=== PATIENT | male | born 1985 | race Caucasian/White ===

== ENCOUNTER 2016-09-12 16:30 | Emergency (ER) | payer OTHER ==
[2016-09-12] MEDS ORDERED: HYDROcod/ACET 5/325 Prepack 6 PO ONE ×2 (17:31→17:35)
[2016-09-12] MEDS ORDERED: AMOXICILLIN 250 MG Prepack 6 PO ONE (17:35)
[2016-09-12] MEDS ORDERED: AMOXICILLIN 250 MG Prepack 6 PO SCH (22:00)
== END 2016-09-12 17:44 | disposition home or self-care (01) ==
DX: K04.7 Periapical abscess without sinus (principal); R03.0 Elevated blood-pressure reading, without diagnosis of hypertension

== ENCOUNTER 2016-11-28 18:59 | Emergency (ER) | payer OTHER ==
[2016-11-28] MEDS ORDERED: predniSONE 20 MG TABLET PO STA (19:44)
[2016-11-28] MEDS ORDERED: predniSONE 20 MG TABLET ONE (19:46)
--- NOTE | 2016-11-28 19:48 | ED Physician Documentation ---
History of Present Illness - Stated complaint Stated Complaint: NECK PX - Chief complaint Chief Complaint: General - History obtained from History obtained from: Patient - History of Present Illness Timing: Other (30-year-old gentleman whose had neck pain in the midline for a month after sleeping on a couch. He thought it was just muscle at first but it' s been going on for a long time now, he saw a chiropractor who made it worse. Today it was even worse and he developed some shooting pain and numbness down the thumb side of his arm on the right.) Review of Systems Constitutional: reports: Reviewed and negative Throat: reports: Reviewed and negative Cardiac: reports: Reviewed and negative Respiratory: reports: Reviewed and negative PD PAST MEDICAL HISTORY - Past Medical History Past Medical History: Yes Cardiovascular: None Respiratory: None Neuro: None Endocrine/Autoimmune: None GI: None : None HEENT: None Psych: None Musculoskeletal: None Derm: None - Past Surgical History Past Surgical History: No - Present Medications Home Medications: Ambulatory Orders Medication Instructions Recorded Confirmed predniSONE [Deltasone] 20 mg PO [id number] #21 tab 11/28/16 - Allergies Allergies/Adverse Reactions: Allergies Allergy/AdvReac Type Severity Reaction Status Date / Time vancomycin Allergy Severe Rash Verified 11/28/16 19:11 - Social History Does the pt smoke?: No Smoking Status: Never smoker Does the pt drink ETOH?: Yes Does the pt have substance abuse?: No - Immunizations Immunizations are current?: Yes - POLST Patient has POLST: No PD ED PE NORMAL - Vitals Vital signs reviewed: Yes - General General: Alert and oriented X 3, No acute distress - Neck Neck: No bony TTP, Other (He has pain especially when looking to the right and resist rotation but not flexion) - Extremities Extremities: Other (He has symmetric sensation and reflexes throughout the upper extremities. Normal personal financial advisor strength, interosseous, thumb extension. I wonder if he might have subtly decreased wrist flexion on the right but it is subtle, wrist extension seems maintained.) - Neuro Neuro: Alert and oriented X 3, Normal speech - Psych Psych: Normal mood, Normal affect Results - Vitals Vitals: Vital Signs - 24 hr 11/28/16 19:12 Temperature 36.5 C Heart Rate 79 Respiratory 16 Rate Blood Pressure 165/108 H O2 Saturation 100 Oxygen O2 Source Room air - Rads (name of study) C spine XR Radiology: EMP read contemporaneously (mild scoliosis, NAD) PD MEDICAL DECISION MAKING - ED course ED course: Presents with ongoing neck pain that could be muscular but seems long-standing for that. And some symptoms that could be referable to a cervical radiculopathy. He declined pain medication per se but wanted to try some steroid after discussion. Departure - Departure Disposition: Home, Self Care Clinical Impression: Cervical radiculopathy Condition: Good Record reviewed to determine appropriate education?: Yes Instructions: ED Cervical Radiculopathy Follow-Up: [facility] [Provider Group] [facility] [Provider Group] [facility] [Provider Group] Prescriptions: predniSONE [Deltasone] 20 mg PO [id number] #21 tab Comments: Your blood pressure was elevated today on check in to the emergency department. This does not mean that you have hypertension, it is a common phenomenon to check into the emergency department and have elevated blood pressure. I recommend that you see your primary care physician within the week to have it rechecked when you're feeling better. Followup with a primary care physician. Call around or use the ones listed on this form. As discussed I suspect you will be referred to physical therapy and if that is unhelpful than potentially an MRI after that.
--- NOTE | 2016-11-28 20:58 | XRAY Preliminary Report ---
Exam: XR Cervical Spine 2 View IMPRESSION: 1. No fracture or dislocation. 2. There is mild right convex scoliosis. [facility] SITE ID: [id number]
--- NOTE | 2016-11-28 21:00 | XRAY Report ---
EXAM: CERVICAL SPINE RADIOGRAPHY EXAM DATE: 11/28/2016 08:11 PM. CLINICAL HISTORY: Neck pain. COMPARISONS: None. TECHNIQUE: 3 views. FINDINGS: Alignment: No evidence of dislocation. There is mild right convex scoliosis. Bones: The cervical vertebral bodies and posterior elements are well visualized from the skull base t hrough C7-T1. No fractures or bone lesions. Disks: Normal. Disk heights are maintained. Facets: No degenerative disease. Soft Tissues: Normal. No prevertebral soft tissue swelling. The visualized lung apices are clear. IMPRESSION: 1. No fracture or dislocation. 2. There is mild right convex scoliosis. [facility] Referring Provider Line: [phone] SITE ID: [id number]
[2016-11-28 21:08] VITALS: BP 142/98
== END 2016-11-28 21:15 | disposition home or self-care (01) ==
LOC: ED 18:59
DX: M54.12 Radiculopathy, cervical region (principal); R03.0 Elevated blood-pressure reading, without diagnosis of hypertension
CPT/HCPCS: 72040; 99283; J7512

== ENCOUNTER 2018-02-16 08:28 | Observation (INO) | payer OTHER ==
[2018-02-16] MEDS ORDERED: ELECTROLYTE-A SOLUTION 1,000 ML IV STA (09:01)
[2018-02-16] MEDS ORDERED: cefTRIAXone 1 GM in SODIUM CHLORIDE 0.9% MINIBAG 100 ML IV STA (09:05)
--- NOTE | 2018-02-16 09:08 | ED Physician Documentation ---
PD HPI HEENT - Stated complaint Stated Complaint: MOUTH PAIN - Chief complaint Chief Complaint: Abd Pain - History obtained from History obtained from: Patient, Family - History of Present Illness Timing - onset: Enter time (1130), Yesterday Timing - duration: Days (1) Timing - details: Gradual onset, Still present Location: Tooth Improves: Medication Associated symptoms: Headache, Other (chills) Similar symptoms before: Diagnosis (bad tooth) Recently seen: Not recently seen - Additional information Additional information: 32-year-old male with a history of poor dentition and prior dental abscess broke off a part of his tooth yesterday and stabbed it into the gums on the right side. He had bit of bleeding associated with this. At about 4:30 in the morning he got up and took some amoxicillin with pain he was having in his mouth. He went back to bed and at approximately 8:00 in the morning he awoke to shaking chills and felt horrible. He is come in now with nausea vomiting and peripheral cyanosis. Review of Systems Constitutional: reports: Fever, Chills, Fatigue, Sweats Eyes: denies: Decreased vision Ears: denies: Ear pain Nose: reports: Congestion Throat: reports: Dental pain / toothache, Oral lesions / sores Cardiac: denies: Chest pain / pressure, Palpitations Respiratory: reports: Dyspnea GI: reports: Nausea, Vomiting. denies: Abdominal Pain : denies: Dysuria, Frequency Skin: denies: Rash Musculoskeletal: denies: Neck pain, Back pain, Extremity pain Neurologic: reports: Generalized weakness. denies: Focal weakness, Numbness PD PAST MEDICAL HISTORY - Past Medical History Cardiovascular: None Respiratory: None Endocrine/Autoimmune: None GI: None : None HEENT: None Psych: None Musculoskeletal: None Derm: None - Past Surgical History Past Surgical History: No - Present Medications Home Medications: Ambulatory Orders Medication Instructions Recorded Confirmed Amoxicillin 500 mg PO 02/16/18 - Allergies Allergies/Adverse Reactions: Allergies Allergy/AdvReac Type Severity Reaction Status Date / Time vancomycin Allergy Severe Rash Verified 02/16/18 08:37 - Social History Does the pt smoke?: No Smoking Status: Never smoker Does the pt drink ETOH?: Yes Does the pt have substance abuse?: No - Immunizations Immunizations are current?: Yes - POLST Patient has POLST: No PD ED PE NORMAL - Vitals Vital signs reviewed: Yes (tachy and hypertensive ) - General General: Alert and oriented X 3, Well developed/nourished, Other (The patient has acrocyanosis around the lips and there is a slight delay in execution of motor commands. ) - HEENT HEENT: Atraumatic, PERRL, EOMI, Ears normal, Other (There are 2 teeth broken off at the base on the right lower jaw. There is inflamation to the gingival mucosa. ) - Neck Neck: Supple, no meningeal sign, No bony TTP - Cardiac Cardiac: No murmur, Other (tachy ) - Respiratory Respiratory: No respiratory distress - Abdomen Abdomen: Soft, Non tender - Back Back: No CVA TTP, No spinal TTP - Derm Derm: Warm and dry, Other (pale ) - Extremities Extremities: No deformity, No edema - Neuro Neuro: Alert and oriented X 3, technical support specialist 2-12 intact, No motor deficit, No sensory deficit, Normal speech Eye Opening: Spontaneous Motor: Obeys Commands Verbal: Oriented GCS Score: 15 - Psych Psych: Normal mood, Normal affect Results - Vitals Vitals: Vital Signs - 24 hr 02/16/18 02/16/18 02/16/18 08:33 09:25 09:31 Temperature 36.9 C 38.0 C H Heart Rate 121 H 106 H 97 Respiratory 16 16 16 Rate Blood Pressure 144/85 H 133/73 H 136/86 H O2 Saturation 99 94 96 02/16/18 02/16/18 02/16/18 10:01 10:30 11:00 Temperature 37.8 C H Heart Rate 90 90 94 Respiratory 16 16 Rate Blood Pressure 135/87 H 121/81 H 121/81 H O2 Saturation 97 97 97 02/16/18 02/16/18 02/16/18 11:29 12:00 12:30 Temperature 37.3 C 37.0 C 37.6 C H Heart Rate 88 87 83 Respiratory 16 16 16 Rate Blood Pressure 108/77 120/84 H 102/63 O2 Saturation 97 97 97 Oxygen O2 Source Room air - Labs Labs: Laboratory Tests 02/16/18 02/16/18 02/16/18 09:15 09:15 09:15 WBC 2.6 L RBC 4.69 L Hgb 16.0 Hct 45.5 MCV 97.0 H MCH 34.1 H MCHC 35.2 RDW 12.8 Plt Count 143 MPV 8.7 Neut # (Auto) 2.1 Lymph # (Auto) 0.4 L [place] # (Auto) 0.0 Eos # (Auto) 0.0 Baso # (Auto) 0.0 Absolute Nucleated RBC 0.00 Nucleated RBC % 0.2 Manual Slide Review Indicated WBC Morphology NORMAL APPEARANCE Platelet Estimate NORMAL (130-450,000) Platelet Morphology NORMAL APPEARANCE RBC Morph Micro Appear NORMAL APPEARANCE Sodium 140 Potassium 3.3 L Chloride 108 Carbon Dioxide 20 L Anion Gap 12.0 BUN 12 Creatinine 0.9 Estimated GFR (MDRD) 99 Glucose 116 H Lactic Acid 2.4 H Calcium 8.7 Total Bilirubin 1.8 H AST 77 H ALT 79 H Alkaline Phosphatase 57 Total Protein 7.1 Albumin 4.2 Globulin 2.9 Albumin/Globulin Ratio 1.4 02/16/18 12:37 WBC RBC Hgb Hct MCV MCH MCHC RDW Plt Count MPV Neut # (Auto) Lymph # (Auto) [place] # (Auto) Eos # (Auto) Baso # (Auto) Absolute Nucleated RBC Nucleated RBC % Manual Slide Review WBC Morphology Platelet Estimate Platelet Morphology RBC Morph Micro Appear Sodium Potassium Chloride Carbon Dioxide Anion Gap BUN Creatinine Estimated GFR (MDRD) Glucose Lactic Acid 2.4 H Calcium Total Bilirubin AST ALT Alkaline Phosphatase Total Protein Albumin Globulin Albumin/Globulin Ratio PD MEDICAL DECISION MAKING - ED course Complexity details: reviewed old records, reviewed results, re-evaluated patient , considered differential, d/w patient, d/w family ED course: 32-year-old male with a history of bad teeth has developed another dental abscess and today he has spiked a fever and appears septic on arrival to the emergency department. He arrives with acrocyanosis tachycardia fever and a depressed white blood cell count. His lactate is 2.4. He is administered intravenous saline and Rocephin. I suspect the patient was bacteremic from the dental infection and will likely have positive blood cultures. He did take a single dose of amoxicillin at 4:00 in the morning. The patient's case is discussed with the hospitalist Dr. Kim and we will repeat his lactate if this is normal we will consider allowing the patient to go home with normal vital signs. Lactate is still elevated and he is admitted for sepsis. - Sepsis Event Vital Signs: Vital Signs - 24 hr 02/16/18 02/16/18 02/16/18 08:33 09:25 09:31 Temperature 36.9 C 38.0 C H Heart Rate 121 H 106 H 97 Respiratory 16 16 16 Rate Blood Pressure 144/85 H 133/73 H 136/86 H O2 Saturation 99 94 96 02/16/18 02/16/18 02/16/18 10:01 10:30 11:00 Temperature 37.8 C H Heart Rate 90 90 94 Respiratory 16 16 Rate Blood Pressure 135/87 H 121/81 H 121/81 H O2 Saturation 97 97 97 02/16/18 02/16/18 02/16/18 11:29 12:00 12:30 Temperature 37.3 C 37.0 C 37.6 C H Heart Rate 88 87 83 Respiratory 16 16 16 Rate Blood Pressure 108/77 120/84 H 102/63 O2 Saturation 97 97 97 Oxygen O2 Source Room air Departure - Departure Disposition: ED Place in Observation Clinical Impression: Dental abscess Sepsis Qualifiers: Sepsis type: sepsis due to unspecified organism Qualified Code(s): A41.9 - Sepsis, unspecified organism
[2018-02-16] MEDS ORDERED: ACETAMINOPHEN 500 MG TABLET PO STA (09:26)
[2018-02-16 09:34] LABS: BASOPHILS % (AUTO) 0.1 %; EOSINOPHILS % (AUTO) 0.8 %; LYMPHOCYTES # (AUTO) 0.4 10^3/uL (1.5-3.5); LYMPHOCYTES % (AUTO) 16.3 %; MEAN CORPUSCULAR HEMOGLOBIN 34.1 pg (27.0-31.0); MEAN CORPUSCULAR HGB CONC 35.2 g/dL (32.0-36.0); MEAN PLATELET VOLUME 8.7 fL (7.4-11.4); NEUTROPHILS # (AUTO) 2.1 10^3/uL (1.5-6.6); NEUTROPHILS % (AUTO) 81.8 %; PLT - PLATELET COUNT 143 10^3/uL (130-450); RED BLOOD COUNT 4.69 10^6/uL (4.70-6.10); RED CELL DISTRIBUTION WIDTH 12.8 % (12.0-15.0); WHITE BLOOD COUNT 2.6 x10^3/uL (4.8-10.8)
[2018-02-16 09:44] LABS: ALBUMIN 4.2 g/dL (3.2-5.5); ALBUMIN/GLOBULIN RATIO 1.4 (1.0-2.2); BILIRUBIN,TOTAL 1.8 mg/dL (0.2-1.0); CALCIUM 8.7 mg/dL (8.5-10.3); CREATININE 0.9 mg/dL (0.6-1.2); TOTAL PROTEIN 7.1 g/dL (6.7-8.2)
[2018-02-16 10:05] LABS: PLATELET ESTIMATE, MANUAL NORMAL (130-450,000) (NORMAL); PLATELET MORPHOLOGY NORMAL APPEARANCE (NORMAL); RBC MORPHOLOGY (MULTIPLE) NORMAL APPEARANCE (NORMAL)
[2018-02-16] MEDS ORDERED: SODIUM CHLORIDE 0.9% 1,000 ML IV ONE (13:28)
[2018-02-16] MEDS ORDERED: oxyCODONE 5 MG TABLET PO PRN (13:41)
[2018-02-16] MEDS ORDERED: ZOLPIDEM 5 MG TABLET PO PRN (13:41)
[2018-02-16] MEDS ORDERED: PROMETHAZINE 25 MG/1 ML VIAL IM PRN (13:41)
[2018-02-16] MEDS ORDERED: PROCHLORPERAZINE 10 MG/2 ML VIAL IVP PRN (13:41)
[2018-02-16] MEDS ORDERED: ONDANSETRON 4 MG/2 ML VIAL IVP PRN (13:41)
[2018-02-16] MEDS ORDERED: SODIUM CHLORIDE 0.9% 3,000 ML IV STA (13:41)
[2018-02-16] MEDS ORDERED: SODIUM CHLORIDE FLUSH 0.9% 10 ML SYRINGE IVP PRN (13:41)
--- NOTE | 2018-02-16 13:53 | HISTORY & PHYSICAL EXAMINATION ---
Chief Complaint - Chief Complaint Chief Complaint: Chills, shakes and vomiting History of Present Illness - Admitted From Admitted From:: Emergency Department - History Obtained From Records Reviewed: Yes History obtained from: Patient Exam Limitations: None - History of Present Illness HPI Comment/Other: Patient is a 32-year-old gentleman with a past medical history significant for history of tooth abscess and gluteal abscess who presented to the emergency department with a chief complaint of chills, shakes and vomiting. The patient states that he previously had a dental abscess for which he took antibiotics. He states that he was supposed to see a dentist to have further treatment but failed to go to the dentist. He states that since then his tooth has fallen out and he has not had any major issues with that tooth. He states that last night he was eating chips when 1 of the chips edges went into his gum where the patient's tooth once laid. He states that he had some bleeding from that gum. He states that there was pain but he went to sleep later in the night. He states that he woke up around 430 with excruciating pain in his mouth around the area where he had the previous bleeding. He states that he noticed that his gum had swollen. He states that he tried to go back to sleep but then began having chills. He states he was shaking uncontrollably. He did not take his temperature at the time. He states that he then became nauseated and had several episodes of emesis. He states that this went on for a few hours and then his told him he needed to go to the emergency department as she noted his lips were turning purple. The patient denies any headache, blurred vision, runny nose, sore throat, nasal congestion, difficulty swallowing, chest pain, cough, shortness of air, orthopnea, PND, increased lower extremity swelling, abdominal pain, diarrhea, constipation, increased urinary urgency, urinary frequency, dysuria, joint pain , joint swelling, muscle aches, back pain, neck stiffness, recent unintentional weight loss, skin rash, hair loss or any focal neurologic deficits. On presentation to the emergency department the patient was febrile with a temperature of 38.0, tachycardic with a heart rate of 121, normotensive and not in any respiratory distress. The patient did look ill-appearing on presentation. Patient's lab work revealed a leukopenia with a white blood cell count of 2.6. The patient had an elevated lactic acid of 2.4 and a hypokalemia with potassium of 3.3. The patient was found to have an infection of his right bottom second premolar. Patient was given 2 L of IV fluid and IV ceftriaxone in the emergency department. The patient initially seemed to have some improvement. However he again spiked a low-grade fever of 37.6 and his blood pressure dropped to 102/63. The patient had a repeat lactic acid which continued to be elevated at 2.4. At this point the patient was considered to be septic and was placed in observation overnight for continued IV antibiotics and IV fluids. The patient did have blood cultures drawn in the emergency department prior to getting antibiotics. History - Past Medical History Cardiovascular: reports: None Respiratory: reports: None Endocrine/Autoimmune: reports: None GI: reports: None : reports: None HEENT: reports: None Psych: reports: None Musculoskeletal: reports: None Derm: reports: None MRSA Hx?: No Other Past Medical History: History of dental abscess - Family & Social History Family History: Mother: Alive and Well (Grandparents also alive and healthy), Father: Alive and Well, Sister: Alive and Well, Brother: Alive and Well Living arrangement: At home Living Situation: With family Social History Notes: Patient lives in [place] with his fiance and 3-year- old child. He is originally from [place] but moved up here as his cousin owns a restaurant in [place]. 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 He does not smoke cigarettes but does use chewing tobacco. He does drink occasionally and denies any illicit drug use. - POLST Patient has POLST: No POLST Status: Full Code Meds/Allgy - Home Medications Home Medications: Ambulatory Orders Medication Instructions Recorded Confirmed No Known Home Medications [No 02/16/18 02/16/18 Known Home Medications] - Allergies Allergies/Adverse Reactions: Allergies Allergy/AdvReac Type Severity Reaction Status Date / Time vancomycin Allergy Severe Rash Verified 02/16/18 08:37 Review of Systems - Other Findings Other Findings: A comprehensive review of systems was performed the pertinent positives and negatives are stated above in the HPI and the remainder of the review of systems is negative. Exam - Vital Signs Reviewed Vital Signs: Yes Vital Signs: Vital Signs x48h Temp Pulse Resp BP Pulse Ox 02/16/18 13:30 37.1 C 82 16 131/89 H 97 02/16/18 12:30 37.6 C H 83 16 102/63 97 02/16/18 12:00 37.0 C 87 16 120/84 H 97 02/16/18 11:29 37.3 C 88 16 108/77 97 02/16/18 11:00 94 121/81 H 97 02/16/18 10:30 37.8 C H 90 16 121/81 H 97 02/16/18 10:01 90 16 135/87 H 97 02/16/18 09:31 97 16 136/86 H 96 02/16/18 09:25 38.0 C H 106 H 16 133/73 H 94 02/16/18 08:33 36.9 C 121 H 16 144/85 H 99 - Physical Exam General Appearance: positive: No acute distress, Alert Eyes Bilateral: positive: Normal inspection, PERRL, EOMI, No lid inflammation, Conjunctivae nml, No scleral icterus ENT: positive: Pharynx nml, Dry mucous membranes, Other (Right bottom 2nd pre molar is tender to touch and slightly swollen without any drainage. There is remains of took on top of his gum but tooth has come out. No bleeding.) Neck: positive: Nml inspection, Thyroid nml, No JVD, Trachea midline Respiratory: positive: Chest non-tender, No respiratory distress, Breath sounds nml Cardiovascular: positive: Regular rate & rhythm, No murmur, No gallop Peripheral Pulses: positive: 2+ Abdomen: positive: Non-tender, No organomegaly, Nml bowel sounds, No distention. negative: Guarding, Rebound, Hepatomegaly Back: positive: Nml inspection. negative: CVA tenderness (R), CVA tenderness (L ) Skin: positive: Color nml, No rash, Warm, Dry. negative: Cyanosis, Diaphoresis , Pallor, Skin rash Extremities: positive: Non-tender, Full ROM, Nml appearance, No pedal edema Neurologic/Psychiatric: positive: Oriented x3, CN's nml (2-12), Motor nml, Sensation nml, Mood/affect nml Conclusion/Plan - Problem List (1) Severe sepsis Conclusion/Plan: Patient presented with fever of 38.0, heart rate 121, leukopenia with WBC of 2.6 , elevated lactic acid of 2.4 and source of infection being dental infection. The patient's blood pressure did drop to the low 100s but was maintained with IV fluid. The patient meets criteria for severe sepsis. After fluid resuscitation patient's lactic acid remained 2.4. The patient was given IV ceftriaxone in the emergency department along with IV fluids. Although the patient is otherwise young and healthy given that he only had a mild response to treatment he was placed in observation overnight for continued IV antibiotics and IV fluids. Plan: IV Unasyn IV fluid IV antiemetics Repeat lactic acid every 6 hours Follow-up blood cultures (2) Dental infection Conclusion/Plan: Patient presented with severe sepsis secondary to a dental infection. Patient appears to have infection of his bottom right second premolar. The patient does have tenderness and erythema as well as swelling of the area. He does not appear to have an abscess at this time. There is no drainage from the tooth. The patient has had an abscess of that tooth in the past. The tooth has fallen out but there are still remains on the gums. Plan: IV Unasyn Pain control IV antiemetics IV fluids Patient needs follow-up with dentist once discharged (3) Hypokalemia Conclusion/Plan: The patient has hypokalemia on presentation with a potassium of 3.3. The patient was vomiting prior to presentation and continues to be nauseated. Likely patient's hypokalemia is secondary to vomiting. Patient will be given IV antiemetics and potassium replacement we will continue to monitor his potassium. (4) Elevated LFTs Conclusion/Plan: The patient has mildly elevated LFTs with a bilirubin of 1.8, AST of 77 and ALT of 79. This may be secondary to his ongoing severe sepsis. It is possible this could be a chronic finding for the patient as we do not have any previous LFTs in the system. Patient could have left fatty liver disease or alcoholic liver disease. For now we will continue to monitor his LFTs if they continue to go up we will consider an ultrasound of his liver and further workup. - Lab Results Lab results reviewed: Yes Fish Bones: 02/16/18 09:15 02/16/18 09:15 Other Lab Results: Laboratory Results WBC 2.6 x10^3/uL (4.8-10.8) L 02/16/18 09:15 RBC 4.69 10^6/uL (4.70-6.10) L 02/16/18 09:15 Hgb 16.0 g/dL (14.0-18.0) 02/16/18 09:15 Hct 45.5 % (42.0-52.0) 02/16/18 09:15 MCV 97.0 fL (80.0-94.0) H 02/16/18 09:15 MCH 34.1 pg (27.0-31.0) H 02/16/18 09:15 MCHC 35.2 g/dL (32.0-36.0) 02/16/18 09:15 RDW 12.8 % (12.0-15.0) 02/16/18 09:15 Plt Count 143 10^3/uL (130-450) 02/16/18 09:15 MPV 8.7 fL (7.4-11.4) 02/16/18 09:15 Neut # (Auto) 2.1 10^3/uL (1.5-6.6) 02/16/18 09:15 Lymph # (Auto) 0.4 10^3/uL (1.5-3.5) L 02/16/18 09:15 [place] # (Auto) 0.0 10^3/uL (0.0-1.0) 02/16/18 09:15 Eos # (Auto) 0.0 10^3/uL (0.0-0.7) 02/16/18 09:15 Baso # (Auto) 0.0 10^3/uL (0.0-0.1) 02/16/18 09:15 Absolute Nucleated RBC 0.00 x10^3/uL 02/16/18 09:15 Nucleated RBC % 0.2 /100WBC 02/16/18 09:15 Manual Slide Review Indicated 02/16/18 09:15 WBC Morphology NORMAL APPEARANCE (NORMAL) 02/16/18 09:15 Platelet Estimate NORMAL (130-450,000) (NORMAL) 02/16/18 09:15 Platelet Morphology NORMAL APPEARANCE (NORMAL) 02/16/18 09:15 RBC Morph Micro Appear NORMAL APPEARANCE (NORMAL) 02/16/18 09:15 Sodium 140 mmol/L (135-145) 02/16/18 09:15 Potassium 3.3 mmol/L (3.5-5.0) L 02/16/18 09:15 Chloride 108 mmol/L (101-111) 02/16/18 09:15 Carbon Dioxide 20 mmol/L (21-32) L 02/16/18 09:15 Anion Gap 12.0 (6-13) 02/16/18 09:15 BUN 12 mg/dL (6-20) 02/16/18 09:15 Creatinine 0.9 mg/dL (0.6-1.2) 02/16/18 09:15 Estimated GFR (MDRD) 99 (>89) 02/16/18 09:15 Glucose 116 mg/dL (70-100) H 02/16/18 09:15 Lactic Acid 2.4 mmol/L (0.5-2.2) H 02/16/18 12:37 Calcium 8.7 mg/dL (8.5-10.3) 02/16/18 09:15 Total Bilirubin 1.8 mg/dL (0.2-1.0) H 02/16/18 09:15 AST 77 IU/L (10-42) H 02/16/18 09:15 ALT 79 IU/L (10-60) H 02/16/18 09:15 Alkaline Phosphatase 57 IU/L (42-121) 02/16/18 09:15 Total Protein 7.1 g/dL (6.7-8.2) 02/16/18 09:15 Albumin 4.2 g/dL (3.2-5.5) 02/16/18 09:15 Globulin 2.9 g/dL (2.1-4.2) 02/16/18 09:15 Albumin/Globulin Ratio 1.4 (1.0-2.2) 02/16/18 09:15 - Diagnostic Imaging Results Diagnostic Imaging Results: positive: Final report reviewed Diagnostic Imaging Results Comments: Chest x-ray Impression Normal 2 view chest radiography. Core Measures - Anticipated LOS I expect patient to be DC'd or transferred within 96 hours.: Yes - DVT/VTE - Prophylaxis VTE/DVT Device ordered at admit?: Yes
--- NOTE | 2018-02-16 14:30 | XRAY Report ---
Reason: fever, chills, sepsis Procedure Date: 02/16/2018 Accession Number: [id number] / [id number] Procedure: XR - Chest 2 View X-Ray CPT Code: 06220 FULL RESULT: EXAM: CHEST RADIOGRAPHY EXAM DATE: 02/16/2018 01:55 PM. CLINICAL HISTORY: Fever, chills, sepsis COMPARISON: None. TECHNIQUE: 2 views. FINDINGS: Lungs/Pleura: No focal opacities evident. No pleural effusion. No pneumothorax. Normal volumes. Mediastinum: Heart and mediastinal contours are unremarkable. Other: Negative bony structures IMPRESSION: Normal 2-view chest radiography. [facility]
[2018-02-16] MEDS: AMPICILLIN/SULBACTAM 1.5 GM in SODIUM CHLORIDE 0.9% MINIBAG 100 ML IV SCH ×2 (14:36→17:44)
[2018-02-16] MEDS: NS W/20 MEQ KCL 1,000 ML IV SCH (14:37)
[2018-02-16 16:02] LABS: BILIRUBIN,URINE NEGATIVE (NEGATIVE); CLARITY,URINE CLEAR (CLEAR); GLUCOSE, URINE (UA) NEGATIVE (NEGATIVE); KETONES,URINE (UA) NEGATIVE (NEGATIVE); LEUKOCYTE ESTERASE, URINE NEGATIVE (NEGATIVE); NITRITE,URINE NEGATIVE (NEGATIVE); OCCULT BLOOD,URINE NEGATIVE (NEGATIVE); PH,URINE 6.5 PH (5.0-7.5); PROTEIN,URINE NEGATIVE (NEGATIVE); UROBILINOGEN,URINE 0.2 (NORMAL) E.U./dL (NORMAL)
[2018-02-16] MEDS: SODIUM CHLORIDE FLUSH 0.9% 10 ML SYRINGE IVP SCH (16:51)
[2018-02-16] MEDS: ACETAMINOPHEN 325 MG TABLET PO PRN ×2 (16:51→21:46)
[2018-02-17] MEDS: AMPICILLIN/SULBACTAM 1.5 GM in SODIUM CHLORIDE 0.9% MINIBAG 100 ML IV SCH ×3 (00:19→12:07)
[2018-02-17] MEDS: SODIUM CHLORIDE FLUSH 0.9% 10 ML SYRINGE IVP SCH ×3 (00:39→15:55)
[2018-02-17] MEDS: ACETAMINOPHEN 325 MG TABLET PO PRN ×3 (01:56→15:54)
[2018-02-17] MEDS: NS W/20 MEQ KCL 1,000 ML IV SCH (01:58)
[2018-02-17] MEDS ORDERED: KETOROLAC 15 MG/ML VIAL IVP PRN (02:41)
[2018-02-17] MEDS ORDERED: LINEZOLID 600 MG/300 ML 600 MG/300 ML BAG IV SCH ×2 (03:00→15:00)
[2018-02-17 03:54] LABS: MUDS CUTOFF CONCENTRATIONS CUTOFF CONC BELOW:
[2018-02-17 04:26] LABS: AMPHETAMINE SCREEN,URINE NEGATIVE (NEGATIVE); BENZODIAZEPINES SCREEN, URINE NEGATIVE (NEGATIVE); COCAINE SCREEN URINE NEGATIVE (NEGATIVE); METHADONE SCREEN, URINE NEGATIVE (NEGATIVE); METHAMPHETAMINES SCREEN, URINE NEGATIVE (NEGATIVE); OPIATE SCREEN, URINE NEGATIVE (NEGATIVE); OXYCODONE SCREEN, URINE NEGATIVE (NEGATIVE); PROPOXYPHENE SCREEN, URINE NEGATIVE (NEGATIVE); TRICYCLIC ANTIDEPRESSANT,URINE NEGATIVE (NEGATIVE)
[2018-02-17 06:20] LABS: BASOPHILS % (AUTO) 0.2 %; HGB - HEMOGLOBIN 15.5 g/dL (14.0-18.0); LYMPHOCYTES # (AUTO) 0.4 10^3/uL (1.5-3.5); LYMPHOCYTES % (AUTO) 4.4 %; MEAN CORPUSCULAR HEMOGLOBIN 34.9 pg (27.0-31.0); MEAN CORPUSCULAR HGB CONC 35.8 g/dL (32.0-36.0); MEAN CORPUSCULAR VOLUME 97.7 fL (80.0-94.0); MEAN PLATELET VOLUME 9.1 fL (7.4-11.4); MONOCYTES # (AUTO) 0.4 10^3/uL (0.0-1.0); MONOCYTES % (AUTO) 4.4 %; NEUTROPHILS # (AUTO) 9.3 10^3/uL (1.5-6.6); PLT - PLATELET COUNT 113 10^3/uL (130-450); RED BLOOD COUNT 4.44 10^6/uL (4.70-6.10); RED CELL DISTRIBUTION WIDTH 12.9 % (12.0-15.0); WHITE BLOOD COUNT 10.2 x10^3/uL (4.8-10.8)
[2018-02-17] MEDS ORDERED: POLYETHYLENE GLYCOL 3350 17 GM PACKET PO SCH (09:00)
[2018-02-17] MEDS ORDERED: FAMOTIDINE 20 MG TABLET PO SCH (09:00)
--- NOTE | 2018-02-17 10:06 | Discharge Plan ---
Discharge Plan Disposition: 01 Home, Self Care Condition: Fair Prescriptions: Clindamycin HCl [Clindamycin 150MG CAP] 150 mg PO QID #84 capsule Diet: Soft Activity Restrictions: Activity as Tolerated Shower Restrictions: No Driving Restrictions: No Instruction Topics: Clindamycin capsules, Dental Abscess, MRSA Infec Additional Instructions or Follow Up instructions: You have a dental infection and are being discharged home with oral antibiotics for 7 days. You will take clindamycin four times a day. Please follow up with a dentist as soon as possible. No Smoking: If you smoke, Please STOP! Call for help.
--- NOTE | 2018-02-17 10:20 | DISCHARGE SUMMARY ---
Discharge Summary Admit Date: 02/16/18 Discharge Date: 02/17/18 Discharging Provider: Rodney Kim MD Primary Care Provider: None Code Status: Attempt Resuscitation Condition at Discharge: Fair Discharge Disposition: 01 Home, Self Care - DIAGNOSES Admission Diagnoses: 1. Severe sepsis 2. Dental infection 3. Hypokalemia 4. Elevated LFTs Discharge Diagnoses with Status of Each Condition: 1. Severe sepsis: Resolved 2. Dental infection: Improving 3. Hypokalemia: Resolved 4. Elevated LFTs: Stable - HPI History of Present Illness: Patient is a 32-year-old gentleman with a past medical history significant for history of tooth abscess and gluteal abscess who presented to the emergency department with a chief complaint of chills, shakes and vomiting. The patient states that he previously had a dental abscess for which he took antibiotics. He states that he was supposed to see a dentist to have further treatment but failed to go to the dentist. He states that since then his tooth has fallen out and he has not had any major issues with that tooth. He states that last night he was eating chips when 1 of the chips edges went into his gum where the patient's tooth once laid. He states that he had some bleeding from that gum. He states that there was pain but he went to sleep later in the night. He states that he woke up around 430 with excruciating pain in his mouth around the area where he had the previous bleeding. He states that he noticed that his gum had swollen. He states that he tried to go back to sleep but then began having chills. He states he was shaking uncontrollably. He did not take his temperature at the time. He states that he then became nauseated and had several episodes of emesis. He states that this went on for a few hours and then his told him he needed to go to the emergency department as she noted his lips were turning purple. The patient denies any headache, blurred vision, runny nose, sore throat, nasal congestion, difficulty swallowing, chest pain, cough, shortness of air, orthopnea, PND, increased lower extremity swelling, abdominal pain, diarrhea, constipation, increased urinary urgency, urinary frequency, dysuria, joint pain , joint swelling, muscle aches, back pain, neck stiffness, recent unintentional weight loss, skin rash, hair loss or any focal neurologic deficits. On presentation to the emergency department the patient was febrile with a temperature of 38.0, tachycardic with a heart rate of 121, normotensive and not in any respiratory distress. The patient did look ill-appearing on presentation. Patient's lab work revealed a leukopenia with a white blood cell count of 2.6. The patient had an elevated lactic acid of 2.4 and a hypokalemia with potassium of 3.3. The patient was found to have an infection of his right bottom second premolar. Patient was given 2 L of IV fluid and IV ceftriaxone in the emergency department. The patient initially seemed to have some improvement. However he again spiked a low-grade fever of 37.6 and his blood pressure dropped to 102/63. The patient had a repeat lactic acid which continued to be elevated at 2.4. At this point the patient was considered to be septic and was placed in observation overnight for continued IV antibiotics and IV fluids. The patient did have blood cultures drawn in the emergency department prior to getting antibiotics. - HOSPITAL COURSE Hospital Course: The patient was hospitalized due to severe sepsis secondary to a dental infection. Initially the patient was placed on IV Unasyn but continued to spike fever through the night although he did remain hemodynamically stable. The patient underwent a nasal MRSA swab which was positive. Therefore the patient had Zyvox added to the Unasyn for treatment of his dental infection. The patient responded well to this treatment and remained afebrile through the next morning. The patient's lactic acid improved from 2.4 down to 1.0. The patient's leukopenia resolved. The patient was feeling much better by the time of discharge. The patient did not complain of any pain in his tooth at the time of discharge. The patient's blood cultures were negative after 1 day. The patient was discharged home on oral clindamycin 4 times a day for 7 days. The patient was asked to follow-up with his dentist as soon as possible. The patient was in stable condition at the time of discharge. - ALLERGIES Allergies/Adverse Reactions: Allergies Allergy/AdvReac Type Severity Reaction Status Date / Time vancomycin Allergy Severe Rash Verified 02/16/18 08:37 - MEDICATIONS Home Medications: Ambulatory Orders Medication Instructions Recorded Confirmed Clindamycin HCl [Clindamycin 150MG 150 mg PO QID #84 capsule 02/17/18 [facility]] - PHYSICAL EXAM AT DISCHARGE General Appearance: positive: No acute distress, Alert Eyes Bilateral: positive: Normal inspection, PERRL, EOMI, No lid inflammation, Conjunctivae nml, No scleral icterus ENT: positive: Pharynx nml, No signs of dehydration, Other (Right bottom 2nd premolar is tender but swelling and erythema are minimal. Patient has no drainage from the tooth. ). negative: Purulent nasal drainage, Pharyngeal erythema, Oral lesions Neck: positive: Nml inspection, Thyroid nml, No JVD, Trachea midline. negative : Lymphadenopathy (R), Lymphadenopathy (L), Stiff neck, Carotid bruit, Tracheal deviation Respiratory: positive: Chest non-tender, No respiratory distress, Breath sounds nml. negative: Wheezes, Rales, Rhonchi Cardiovascular: positive: Regular rate & rhythm, No murmur, No gallop Peripheral Pulses: positive: 2+ Abdomen: positive: Non-tender, No organomegaly, Nml bowel sounds, No distention. negative: Guarding, Rebound, Hepatomegaly Back: positive: Nml inspection. negative: CVA tenderness (R), CVA tenderness (L ) Skin: positive: Color nml, No rash, Warm. negative: Cyanosis, Diaphoresis, Pallor, Skin rash Extremities: positive: Non-tender, Full ROM, Nml appearance, No pedal edema Neurologic/Psychiatric: positive: Oriented x3, CN's nml (2-12), Motor nml, Sensation nml, Mood/affect nml - LABS Result Diagrams: 02/17/18 06:00 02/16/18 09:15 Other Lab Results: Laboratory Results WBC 10.2 x10^3/uL (4.8-10.8) 02/17/18 06:00 RBC 4.44 10^6/uL (4.70-6.10) L 02/17/18 06:00 Hgb 15.5 g/dL (14.0-18.0) 02/17/18 06:00 Hct 43.4 % (42.0-52.0) 02/17/18 06:00 MCV 97.7 fL (80.0-94.0) H 02/17/18 06:00 MCH 34.9 pg (27.0-31.0) H 02/17/18 06:00 MCHC 35.8 g/dL (32.0-36.0) 02/17/18 06:00 RDW 12.9 % (12.0-15.0) 02/17/18 06:00 Plt Count 113 10^3/uL (130-450) L 02/17/18 06:00 MPV 9.1 fL (7.4-11.4) 02/17/18 06:00 Neut # (Auto) 9.3 10^3/uL (1.5-6.6) H 02/17/18 06:00 Lymph # (Auto) 0.4 10^3/uL (1.5-3.5) L 02/17/18 06:00 [place] # (Auto) 0.4 10^3/uL (0.0-1.0) 02/17/18 06:00 Eos # (Auto) 0.0 10^3/uL (0.0-0.7) 02/17/18 06:00 Baso # (Auto) 0.0 10^3/uL (0.0-0.1) 02/17/18 06:00 Absolute Nucleated RBC 0.00 x10^3/uL 02/17/18 06:00 Nucleated RBC % 0.0 /100WBC 02/17/18 06:00 Manual Slide Review Indicated 02/16/18 09:15 WBC Morphology NORMAL APPEARANCE (NORMAL) 02/16/18 09:15 Platelet Estimate NORMAL (130-450,000) (NORMAL) 02/16/18 09:15 Platelet Morphology NORMAL APPEARANCE (NORMAL) 02/16/18 09:15 RBC Morph Micro Appear NORMAL APPEARANCE (NORMAL) 02/16/18 09:15 Sodium 140 mmol/L (135-145) 02/16/18 09:15 Potassium 3.3 mmol/L (3.5-5.0) L 02/16/18 09:15 Chloride 108 mmol/L (101-111) 02/16/18 09:15 Carbon Dioxide 20 mmol/L (21-32) L 02/16/18 09:15 Anion Gap 12.0 (6-13) 02/16/18 09:15 BUN 12 mg/dL (6-20) 02/16/18 09:15 Creatinine 0.9 mg/dL (0.6-1.2) 02/16/18 09:15 Estimated GFR (MDRD) 99 (>89) 02/16/18 09:15 Glucose 116 mg/dL (70-100) H 02/16/18 09:15 Lactic Acid 1.0 mmol/L (0.5-2.2) 02/17/18 06:00 Calcium 8.7 mg/dL (8.5-10.3) 02/16/18 09:15 Total Bilirubin 1.8 mg/dL (0.2-1.0) H 02/16/18 09:15 AST 77 IU/L (10-42) H 02/16/18 09:15 ALT 79 IU/L (10-60) H 02/16/18 09:15 Alkaline Phosphatase 57 IU/L (42-121) 02/16/18 09:15 Total Protein 7.1 g/dL (6.7-8.2) 02/16/18 09:15 Albumin 4.2 g/dL (3.2-5.5) 02/16/18 09:15 Globulin 2.9 g/dL (2.1-4.2) 02/16/18 09:15 Albumin/Globulin Ratio 1.4 (1.0-2.2) 02/16/18 09:15 Urine Color YELLOW 02/16/18 15:30 Urine Clarity CLEAR (CLEAR) 02/16/18 15:30 Urine pH 6.5 PH (5.0-7.5) 02/16/18 15:30 Ur Specific [facility] 1.015 (1.002-1.030) 02/16/18 15:30 Urine Protein NEGATIVE mg/dL (NEGATIVE) 02/16/18 15:30 Urine Glucose (UA) NEGATIVE mg/dL (NEGATIVE) 02/16/18 15:30 Urine Ketones NEGATIVE mg/dL (NEGATIVE) 02/16/18 15:30 Urine Occult Blood NEGATIVE (NEGATIVE) 02/16/18 15:30 Urine Nitrite NEGATIVE (NEGATIVE) 02/16/18 15:30 Urine Bilirubin NEGATIVE (NEGATIVE) 02/16/18 15:30 Urine Urobilinogen 0.2 (NORMAL) E.U./dL (NORMAL) 02/16/18 15:30 Ur Leukocyte Esterase NEGATIVE (NEGATIVE) 02/16/18 15:30 Ur Microscopic Review NOT INDICATED 02/16/18 15:30 Urine Culture Comments NOT INDICATED 02/16/18 15:30 Urine Opiates Screen NEGATIVE (NEGATIVE) 02/17/18 03:20 Ur Oxycodone Screen NEGATIVE (NEGATIVE) 02/17/18 03:20 Urine Methadone Screen NEGATIVE (NEGATIVE) 02/17/18 03:20 Ur Propoxyphene Screen NEGATIVE (NEGATIVE) 02/17/18 03:20 Ur Barbiturates Screen NEGATIVE (NEGATIVE) 02/17/18 03:20 Ur Tricyclics Screen NEGATIVE (NEGATIVE) 02/17/18 03:20 Ur Phencyclidine Scrn NEGATIVE (NEGATIVE) 02/17/18 03:20 Ur Amphetamine Screen NEGATIVE (NEGATIVE) 02/17/18 03:20 U Methamphetamines Scrn NEGATIVE (NEGATIVE) 02/17/18 03:20 U Benzodiazepines Scrn NEGATIVE (NEGATIVE) 02/17/18 03:20 Urine Cocaine Screen NEGATIVE (NEGATIVE) 02/17/18 03:20 U Cannabinoids Screen NEGATIVE (NEGATIVE) 02/17/18 03:20 - DIAGNOSTIC IMAGING Diagnostic Imaging Results: Final report reviewed Diagnostic Imaging Results Comments: Chest x-ray Impression Normal 2 view chest radiography. - FOLLOW UP Follow Up: Patient discharged home with clindamycin for his dental infection he will take it 4 times a day for 7 days. The patient was instructed to follow-up with a dentist as soon as possible. - TIME SPENT Time Spent in Discharge (Minutes): 40
[2018-02-17 16:30] VITALS: BP 140/94
[2018-02-18 13:42] LABS: HEPATITIS A IGM NON-REACTIVE (NON-REACTIVE); HEPATITIS B CORE ANTIBODY IGM NON-REACTIVE (NON-REACTIVE); HEPATITIS B SURFACE ANTIGEN NON-REACTIVE (NON-REACTIVE); HEPATITIS C ANTIBODY REACTIVE (NON-REACTIVE); HIV AG/AB 4TH GEN NON-REACTIVE (NON-REACTIVE)
== END 2018-02-17 16:25 | disposition home or self-care (01) ==
LOC: ED 08:28 → MS2 13:41
PROVIDERS: ADMIT Internal Medicine; ATTEND Internal Medicine
DX: A41.9 Sepsis, unspecified organism (principal); K04.7 Periapical abscess without sinus; R65.20 Severe sepsis without septic shock; Z22.322 Carrier or suspected carrier of Methicillin resistant Staphylococcus aureus; E87.6 Hypokalemia; I73.89 Other specified peripheral vascular diseases; F17.220 Nicotine dependence, chewing tobacco, uncomplicated; R79.89 Other specified abnormal findings of blood chemistry
CPT/HCPCS: 36415; 71046; 80053; 80074; 80306; 81003; 83605; 85025; 87040; 87389; 87640; 96361; 96365; 96366; 96367; 96375; 96376; 99284; A9270; G0378; J2020; 81001; 87086; 99283

== ENCOUNTER 2020-05-19 16:24 | Emergency (ER) | payer BC, OTHER ==
[2020-05-19 17:23] VITALS: BP 122/78
[2020-05-19] MEDS ORDERED: AMOX/CLAV 875 MG/125 MG TABLET PO STA (17:29)
[2020-05-19] MEDS ORDERED: SULFAMETH/TRIMETH DS 800/160 MG TABLET PO STA (17:29)
--- NOTE | 2020-05-19 17:29 | ED Physician Documentation ---
History of Present Illness - Stated complaint Stated Complaint: CHILLS,SHAKES - Chief complaint Chief Complaint: Wound - History obtained from History obtained from: Patient - History of Present Illness Timing: Today Pain level max: 0 Pain level now: 0 - Additonal information Additional information: 34-year-old male presents to the emergency department stating he has had a perianal abscess in the past. He states that he began to feel a swelling near the inferior anus again today. Concerned about recurrent infection. No fevers. Did have chills earlier today. No vomiting. No abdominal pain. Nothing makes it better or worse Review of Systems Constitutional: denies: Fever, Chills Respiratory: denies: Cough GI: denies: Nausea, Vomiting, Diarrhea : denies: Dysuria PD PAST MEDICAL HISTORY - Past Medical History Cardiovascular: None Respiratory: None Endocrine/Autoimmune: None GI: None : None HEENT: None Psych: None Musculoskeletal: None Derm: None - Past Surgical History Past Surgical History: No - Present Medications Home Medications: Ambulatory Orders Medication Instructions Recorded Confirmed Clindamycin HCl [Clindamycin 150MG 150 mg PO QID #84 capsule 02/17/18 [facility]] Amox/Clav 875/125 [Augmentin] 1 tab PO Q12H #20 tablet 05/19/20 Sulfamethox/Trimeth 800/160 1 tab PO BID #20 tablet 05/19/20 [Bactrim Ds 800/160] - Allergies Allergies/Adverse Reactions: Allergies Allergy/AdvReac Type Severity Reaction Status Date / Time vancomycin Allergy Severe Rash Verified 05/19/20 16:37 - Social History Does the pt smoke?: No Smoking Status: Never smoker Does the pt drink ETOH?: Yes Does the pt have substance abuse?: No - Immunizations Immunizations are current?: Yes - POLST Patient has POLST: No POLST Status: Full Code PD ED PE NORMAL - Vitals Vital signs reviewed: Yes - General General: Alert and oriented X 3, No acute distress - HEENT HEENT: Moist mucous membranes - Neck Neck: Supple, no meningeal sign - Cardiac Cardiac: RRR - Respiratory Respiratory: No respiratory distress, Clear bilaterally - Abdomen Abdomen: Soft, Non tender, Non distended - Male 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 No visible or palpable abscess.) - Derm Derm: Warm and dry - Neuro Neuro: Alert and oriented X 3 Results - Vitals Vitals: Vital Signs - 24 hr 05/19/20 05/19/20 16:33 17:22 Temperature 37.3 C Heart Rate 121 H 99 Respiratory 18 18 Rate Blood Pressure 137/68 H 122/78 O2 Saturation 98 100 Oxygen O2 Source Room air PD MEDICAL DECISION MAKING - ED course Complexity details: considered differential, d/w patient ED course: Patient with a history of a perianal abscess. None appreciated today, but he states his symptoms feel similar to prior, he states he does not feel swelling currently either, we will err on the side of caution and treat him with antibiotics for early cellulitis/abscess. Patient counseled regarding signs and symptoms for which I believe and urgent re-evaluation would be necessary. Patient with good understanding of and agreement to plan and is comfortable going home at this time This document was made in part using voice recognition software. While efforts are made to proofread this document, sound alike and grammatical errors may occur. Departure - Departure Disposition: 01 Home, Self Care Clinical Impression: Abscess Condition: Good Instructions: ED Staph Infec Abx Tx Only Follow-Up: your,doctor in 3 days [Other] Prescriptions: Amox/Clav 875/125 [Augmentin] 1 tab PO Q12H #20 tablet Sulfamethox/Trimeth 800/160 [Bactrim Ds 800/160] 1 tab PO BID #20 tablet Comments: Take all antibiotics until gone. Return if you worsen. Discharge Date/Time: 05/19/20 17:38
== END 2020-05-19 17:38 | disposition home or self-care (01) ==
LOC: ED 16:24
DX: K61.0 Anal abscess (principal)
CPT/HCPCS: 99282; 99284; A9270